=== PATIENT | male | born 1995 ===

== ENCOUNTER 2017-01-31 11:30 | Emergency (ER) | payer MEDICAID ==
[2017-01-31 11:48] VITALS: BMI 20.6
[2017-01-31 11:49] VITALS: TEMP 98.4
--- NOTE | 2017-01-31 12:19 | ED PDOC ---
HPI: Headache Time Seen by Provider: 01/31/17 12:07 Chief Complaint (Nursing): Headache Chief Complaint (Provider): headache History Per: Patient Additional Complaint(s): Patient presents to ED with headache that has been on and off for the past 2 days. Patient states when he takes Advil the pain does get better but does not resolve completely. He last took Advil at 7 AM and this did help the headache somewhat but he rates current pain as 7 out of 10. Patient denies any associated vision changes, dizziness, nausea, vomiting, fever or chills. This is not the worst headache of his life. He also states that he gets headaches frequently, about 2-3 times per week for the past year. Past Medical History Reviewed: Historical Data, Nursing Documentation, Vital Signs Vital Signs: Last Vital Signs Temp 98.4 F 01/31/17 11:49 Pulse 81 01/31/17 11:49 Resp 20 01/31/17 11:49 BP 130/82 01/31/17 11:49 Pulse Ox 97 01/31/17 11:49 - Medical History PMH: No Chronic Diseases - Surgical History Surgical History: No Surg Hx - Family History Family History: States: No Known Family Hx - Living Arrangements Living Arrangements: With Family - Social History Current smoker - smoking cessation education provided: No Alcohol: None Drugs: Denies - Home Medications Home Medications: Ambulatory Orders Medication Instructions Recorded No Known Home Med 01/31/17 - Allergies Allergies/Adverse Reactions: Allergies Allergy/AdvReac Type Severity Reaction Status Date / Time No Known Allergies Allergy Verified 01/31/17 11:50 Review of Systems ROS Statement: Except As Marked, All Systems Reviewed And Found Negative Constitutional: Negative for: Fever, Chills Cardiovascular: Negative for: Chest Pain Respiratory: Negative for: Cough Gastrointestinal: Negative for: Nausea, Vomiting, Abdominal Pain Neurological: Positive for: Headache (on and off for 2 days, denies trauma, not worst headache of his life). Negative for: Weakness, Numbness, Incoordination, Change in Speech, Confusion, Seizures, Altered Mental Status, Dizziness Physical Exam - Reviewed Nursing Documentation Reviewed: Yes Vital Signs Reviewed: Yes - Physical Exam Appears: Positive for: Well, Non-toxic, No Acute Distress Head Exam: Positive for: ATRAUMATIC, NORMAL INSPECTION Skin: Positive for: Normal Color. Negative for: Rash Eye Exam: Positive for: Normal appearance, EOMI, PERRL ENT: Positive for: Normal ENT Inspection Neck: Positive for: Painless ROM. 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 Negative for: Motor/Sensory Deficits, Aphasia, Facial Droop - ECG O2 Sat by Pulse Oximetry: 97 Pulse Ox Interpretation: Normal - Other Rad CT head X-Ray: Read By Radiologist X-Ray Interpretation: see below Medical Decision Making Medical Decision Makin21 year old with headache, no neuro deficits noted on exam. Plan: CT head PO tylenol IM reglan CT: IMPRESSION: No acute intracranial hemorrhage. Mild mucosal thickening within the ethmoid air complex with minor extension superiorly into the left chamber frontal sinus. Patient is aware of above results, headache resolved after meds given. Patient was advised to continue with NSAIDs for pain as needed and he was referred to neurology on-call. Disposition - Clinical Impression Clinical Impression: Headache - Patient ED Disposition Is Patient to be Admitted: No Counseled Patient/Family Regarding: Studies Performed, Diagnosis, Need For Followup - Disposition Referrals: Danis Gutierrez MD [Medical Doctor] - Disposition: Routine/Home Disposition Time: 13:26 Condition: STABLE Additional Instructions: Continue with Tylenol or Advil for pain as needed. Drink plenty of fluids. Follow-up with neurologist for further evaluation. Instructions: General Headache (ED)
--- NOTE | 2017-01-31 13:04 | CT ---
PROCEDURE: CT HEAD WITHOUT CONTRAST. HISTORY: headache for 2 days COMPARISON: Comparison made with prior MRI brain dated 09/21/2015. TECHNIQUE: Axial computed tomography images were obtained through the head/brain without intravenous contrast. Radiation dose: Total exam DLP = 841.55 mGy-cm. This CT exam was performed using one or more of the following dose reduction techniques: Automated exposure control, adjustment of the mA and/or kV according to patient size, and/or use of iterative reconstruction technique. FINDINGS: HEMORRHAGE: No acute parenchymal, subarachnoid or extra-axial insert nor hemorrhage. BRAIN: No mass effect or edema. No atrophy or chronic microvascular ischemic changes. VENTRICLES: Unremarkable. No hydrocephalus. CALVARIUM: Unremarkable. PARANASAL SINUSES: The visualized paranasal sinuses remain well developed. No fluid levels seen to suggest acute sinusitis Mild mucosal thickening within the ethmoid air complex with minor extension superiorly into the left chamber frontal sinus. . MASTOID AIR CELLS: Unremarkable as visualized. No inflammatory changes. OTHER FINDINGS: None. IMPRESSION: No acute intracranial hemorrhage. Mild mucosal thickening within the ethmoid air complex with minor extension superiorly into the left chamber frontal sinus
[2017-01-31 13:56] VITALS: BP 122/67; PULSE 68; RESP 14; O2SAT 98
== END 2017-01-31 13:55 | disposition home or self-care (01) ==
LOC: H.ER 11:30
DX: R51 Headache (principal)

== ENCOUNTER 2018-06-10 20:35 | Emergency (ER) | payer OTHER, MEDICAID ==
[2018-06-10 20:36] VITALS: BMI 20.6
[2018-06-10 21:21] VITALS: BP 131/79; PULSE 78; RESP 18; TEMP 98.7; O2SAT 99
[2018-06-10] MEDS ORDERED: Tdap Vaccine 0.5 ml Vial (10-64 yrs) IM ONE ×2 (21:25→21:59)
[2018-06-10] MEDS ORDERED: Lidocaine PF 2% (5 ml) Inj (For Cardiac Arrhy) IJ STA (21:25)
[2018-06-10] MEDS ORDERED: Lidocaine 2% MPF (5 ml) Inj ONE (21:34)
--- NOTE | 2018-06-10 21:42 | ED PDOC ---
HPI: Skin/Bite Injury Chief Complaint (Provider): Abnormal Skin Integrity History Per: Patient History/Exam Limitations: no limitations Onset/Duration Of Symptoms: Hrs (Today) Current Symptoms Are (Timing): Still Present Quality Of Symptoms: Painful Additional Complaint(s): 22 year old male presents to the ED for evaluation of a laceration to the right thumb that happened at work today. Patient states he works at [employer] where he cut his thumb on a sharp object that was sticking out. Last tetanus unknown. PMD: none <Jamia Daniel - Last Filed: 06/10/18 22:00> <Lorrie Hidalgo - Last Filed: 06/11/18 17:28> Time Seen by Provider: 06/10/18 21:17 Chief Complaint (Nursing): Abnormal Skin Integrity Past Medical History Reviewed: Historical Data, Nursing Documentation, Vital Signs Vital Signs: Last Vital Signs Temp 98.7 F 06/10/18 21:18 Pulse 78 06/10/18 21:18 Resp 18 06/10/18 21:18 BP 131/79 06/10/18 21:18 Pulse Ox 99 06/10/18 21:18 - Medical History PMH: No Chronic Diseases - Surgical History Surgical History: No Surg Hx - Family History Family History: States: Unknown Family Hx - Living Arrangements Living Arrangements: With Family - Social History Current smoker - smoking cessation education provided: No <Jamia Daniel - Last Filed: 06/10/18 22:00> Vital Signs: Last Vital Signs Temp 98.7 F 06/10/18 21:18 Pulse 78 06/10/18 21:18 Resp 18 06/10/18 21:18 BP 131/79 06/10/18 21:18 Pulse Ox 99 06/10/18 22:03 <Lorrie Hidalgo - Last Filed: 06/11/18 17:28> - Home Medications Home Medications: Ambulatory Orders Medication Instructions Recorded RX: No Known Home Med 01/31/17 - Allergies Allergies/Adverse Reactions: Allergies Allergy/AdvReac Type Severity Reaction Status Date / Time No Known Allergies Allergy Verified 06/10/18 21:17 Review of Systems ROS Statement: Except As Marked, All Systems Reviewed And Found Negative Skin: Positive for: Other (Laceration on right thumb) <Jamia Daniel - Last Filed: 06/10/18 22:00> Physical Exam - Reviewed Nursing Documentation Reviewed: Yes Vital Signs Reviewed: Yes - Physical Exam Appears: Positive for: Non-toxic, No Acute Distress Head Exam: Positive for: ATRAUMATIC, NORMOCEPHALIC Skin: Positive for: Normal Color, Warm, Dry Eye Exam: Positive for: Normal appearance Neck: Positive for: Normal, Painless ROM Cardiovascular/Chest: Negative for: Murmur Respiratory: Negative for: Wheezing, Respiratory Distress Extremity: Positive for: Normal ROM Neurologic/Psych: Positive for: Alert, Oriented. Negative for: Motor/Sensory Deficits Comments: 2cm laceration to the right posterior thumb. <Jamia Daniel Filed: 06/10/18 22:00> - ECG O2 Sat by Pulse Oximetry: 99 (RA) Pulse Ox Interpretation: Normal <Jamia Daniel Filed: 06/10/18 22:00> Medical Decision Making Medical Decision Making: Initial Impression: Right thumb laceration Initial Plan: --Tetanus 0.5mL IM --Lidocaine 5mL IJ Scribe Attestation: Documented by Kian Isaacs acting as a scribe for Jamai COREAS. Provider Scribe Attestation: All medical record entries made by the Scribe were at my direction and personally dictated by me. I have reviewed the chart and agree that the record accurately reflects my personal performance of the history, physical exam, medical decision making, and the department course for this patient. I have also personally directed, reviewed, and agree with the discharge instructions and disposition. <Jamia Daniel Filed: 06/10/18 22:00> Disposition - Patient ED Disposition Is Patient to be Admitted: No Counseled Patient/Family Regarding: Diagnosis, Need For Followup - Disposition Disposition: Routine/Home Disposition Time: 22:01 <Jamia Daniel - Last Filed: 06/10/18 22:00> <Lorrie Hidalgo - Last Filed: 06/11/18 17:28> - Clinical Impression Clinical Impression: Tetanus toxoid vaccination administered at current visit, Finger laceration - Disposition Referrals: [facility] [Outside] Condition: STABLE Additional Instructions: Do not get wet for 24 hours. Keep clean and dry with antibiotic ointment twice a day. Suture removal in 2 weeks. Instructions: Laceration Repair Forms: [employer] (Romansh) - PA / QUAL[employer] TECHNICIAN / Resident Statement MD/DO has reviewed & agrees with the documentation as recorded. <Lorrie Hidalgo - Last Filed: 06/11/18 17:28> Procedures - Laceration/Wound Repair Right Hand Wound Length (cm): 2 Wound's Depth, Shape: superficial Irrigated w/ Saline (ccs): 200 Volume Anesthetic (ccs): 1 (2% Lidocaine) Wound Repaired With: Sutures Suture Size/Type: 4:0, proline Number of Sutures: 2 (Interrupted) Wound Complexity: Simple <Jamia Daniel - Last Filed: 06/10/18 22:00>
== END 2018-06-10 22:19 | disposition home or self-care (01) ==
LOC: H.ER 20:35
DX: S61.011A Laceration without foreign body of right thumb without damage to nail, initial encounter (principal); W26.8XXA Contact with other sharp object(s), not elsewhere classified, initial encounter; Y99.0 Civilian activity done for income or pay